=== PATIENT | female | born 1945 | race Caucasian/White ===

== ENCOUNTER 2016-10-29 12:09 | Emergency (ER) | payer BC, MEDICARE ==
[2016-10-29] MEDS ORDERED: TRAMADOL HCL 50 MG TABLET PO ONE (15:05)
--- NOTE | 2016-10-29 15:19 | RADIOLOGY REPORT (SQ) ---
EXAM DESCRIPTION: KNEE LEFT 3 VIEWS COMPLETED DATE/TIME: 10/29/2016 2:51 pm REASON FOR STUDY: knee pain COMPARISON: None. NUMBER OF VIEWS: Three views left knee. LIMITATIONS: None. FINDINGS: There is no acute or significant bone, joint or soft tissue abnormality. OTHER: No other significant finding. IMPRESSION: NORMAL STUDY. TECHNICAL DOCUMENTATION: JOB ID: [id number]
--- NOTE | 2016-10-29 15:28 | ER Document Report ---
ED Extremity Problem, Lower - General Chief Complaint: Knee Pain Stated Complaint: KNEE INJURY Time Seen by Provider: 10/29/16 13:02 Notes: left knee pain after walking on a treadmill yesterday TRAVEL OUTSIDE OF THE [place] IN LAST 30 DAYS: No - HPI Patient complains to provider of: Pain Location: Knee - left Occurred: Yesterday Where: Home Onset/Duration: Sudden Quality of pain: Achy Context: Wearing shoes - walking on a treadmill which she states she does every day Associated symptoms: denies: Chest pain, Chills, Dizzy, Fainting, Fever, [place] a crack, [place] a pop, Hurts to breath, Painful ambulation, Rapid heart rate, Seizure, Short of breath, Sweaty, Unable to bear weight, Weak, Other Exacerbated by: Movement, Walking Relieved by: Elevation, Ice, Rest - Related Data Allergies/Adverse Reactions: oxycodone Adverse Reaction (Verified 10/29/16 12:18) Past Medical History - Social History Smoking Status: Never Smoker Chew tobacco use (# tins/day): No Frequency of alcohol use: None Drug Abuse: None Family History: Reviewed & Not Pertinent Patient has suicidal ideation: No Patient has homicidal ideation: No Renal/ Medical History: Denies: Hx Peritoneal Dialysis Surgical Hx: Negative - Immunizations Hx Diphtheria, Pertussis, Tetanus Vaccination: Yes Review of Systems - Review of Systems Constitutional: No symptoms reported Musculoskeletal: See HPI Neurological/Psychological: No symptoms reported -: Yes All other systems reviewed and negative Physical Exam - Vital signs Vitals: Temp Pulse Resp BP Pulse Ox 98.1 F 73 20 142/73 H 94 10/29/16 12:18 10/29/16 12:18 10/29/16 12:18 10/29/16 12:18 10/29/16 12:18 - Extremities General lower extremity: Normal inspection, Nontender, Normal color, Normal ROM , Normal strength, Normal temperature, Normal weight bearing Knee: Patellar tendon intact, Other - pain with axial loading of the joint. No : Drawer's test instability, Laxity with valgus stress, Laxity with varus stress , Pain with ROM, Tender joint line, Unable to bear weight - Neurological Neuro grossly intact: Yes Cognition: Normal Orientation: AAOx4 [place] Coma Scale Eye Opening: Spontaneous [place] Coma Scale Verbal: Oriented [place] Coma Scale Motor: Obeys Commands [place] Coma Scale Total: 15 - Skin Skin Temperature: Warm Skin Moisture: Dry Skin Color: Normal Skin Turgor: Elastic Course - Re-evaluation Re-evalutation: 10/29/16 20:52 Patient is a 71-year-old female is hemodynamic stable, no distress afebrile. No evidence of fracture dislocation noted on x-ray. Patient able to bear weight. Patient has likely suffered an internal knee injury. Will follow up with her orthopedic at home. Was given crutches and will continue taking her home medications. Patient is agreeable with plan. - Vital Signs Vital signs: Temp Pulse Resp BP Pulse Ox 98.1 F 76 17 138/76 H 99 10/29/16 12:18 10/29/16 15:47 10/29/16 15:47 10/29/16 15:47 10/29/16 15:47 - Diagnostic Test Radiology reviewed: Image reviewed, Reports reviewed Discharge - Discharge Clinical Impression: Knee pain Qualifiers: Chronicity: acute Laterality: left Qualified Code(s): M25.562 - Pain in left knee Condition: Good Disposition: HOME, SELF-CARE Instructions: Use of Crutches ([facility]), Ice & Elevation ([facility]), Suspected Internal Knee Injury ([facility]) Additional Instructions: Please take your home Mobic and naproxen as tolerated Follow up with your orthopedist in 1-2 weeks
[2016-10-29 15:48] VITALS: BP 138/76
== END 2016-10-29 15:47 | disposition home or self-care (01) ==
LOC: ER 12:09
DX: M25.562 Pain in left knee (principal)
CPT/HCPCS: 99283